=== PATIENT | female | born 1950 | race Caucasian/White ===

== ENCOUNTER 2021-09-07 13:01 | Outpatient (CLI) | payer MEDICARE, OTHER | END 2021-09-07 13:02 | disposition home or self-care (01) | LOC: CSHMRI 13:01 | PROVIDERS: ATTEND Orthopaedic Surgery | DX: M25.562 Pain in left knee (principal); S83.242A Other tear of medial meniscus, current injury, left knee, initial encounter; M71.22 Synovial cyst of popliteal space [Baker], left knee ==